=== PATIENT | male | born 1980 | race Caucasian/White ===

== ENCOUNTER → 2017-06-21 | Outpatient (CLI) | payer OTHER ==
--- NOTE | 2017-07-01 22:15 | SLEEP ---
DATE OF STUDY: 06/21/2017 ATTENDING PHYSICIAN: Dr. Yanna Galeano. The patient is 36 years old who weighs 209 pounds with a BMI of 28. The patient's [place] score was 11. Home sleep study was performed by [facility]. The total recording time was 547 minutes. During the night study, the patient had no central apneas. There were 45 obstructive and 63 mixed apneas. There were 13 hypopneas. The patient's apnea hypopnea index was 13 per hour with a supine index of 22 per hour. Review of nocturnal oximetry study revealed an average oxygen saturation of 94% with the lowest of 85%. Four minutes were spent in oxygen saturation less than 90%. Mean heart rate was 64 beats per minute. IMPRESSION: 1. Mild sleep apnea-hypopnea syndrome with moderate increase in supine sleep. Total AHI of 13 per hour with a supine AHI of 22 per hour. 2. No clinically significant nocturnal hypoxia. RECOMMENDATIONS: 1. The patient has mild sleep apnea. I would recommend weight loss and positional therapy as the initial form of treatment. 2. If patient remains clinically symptomatic, then the patient's sleep apnea can be treated with either a trial of oral appliance or CPAP titration. 3. Weight loss is advised. 4. Avoid [employer] depressants. 5. Cautioned regarding driving until symptoms of sleep apnea resolve with the above recommendation. ABHI SANDERSON MD DR: ROSELIA/shree JOB#: [id number] / [id number] YANNA Hernandez MTDD
== END | disposition home or self-care (01) ==
LOC: RT 12:35
PROVIDERS: ATTEND Family Medicine
DX: G47.33 Obstructive sleep apnea (adult) (pediatric) (principal)
CPT/HCPCS: G0399